=== PATIENT | male | born 1985 | race Caucasian/White ===

== ENCOUNTER 2018-05-24 01:26 | Emergency (ER) | payer OTHER ==
[2018-05-24] MEDS ORDERED: Acetylcysteine 20% 200 MG/ML 30 ML Nebulizer Soln SDV PO ONE (01:48)
[2018-05-24] MEDS ORDERED: ACETYLCYSTEINE ONE (02:00)
[2018-05-24 02:15] LABS: CHLORIDE,CL 96 mEq/L (98-106); SODIUM,NA 137 mEq/L (136-145)
[2018-05-24] MEDS ORDERED: Acetylcysteine 20% 200 MG/ML 30 ML SDV IV ONE (02:15)
[2018-05-24] MEDS ORDERED: Dextrose 5% in Water 100 ML ONE (02:15)
[2018-05-24] MEDS ORDERED: Dextrose 5% in Water 250 ML ONE (02:20)
--- NOTE | 2018-05-24 02:26 | EDM.PDOC ---
ED HPI GENERAL MEDICAL PROBLEM - General Chief Complaint: General Stated Complaint: suicide attept Time Seen by Provider: 05/24/18 01:45 Source of Information: Reports: Patient, EMS, RN History Limitations: Reports: Intoxication - History of Present Illness INITIAL COMMENTS - FREE TEXT/NARRATIVE: This patient is a 33 year old male that presents to the ER. Patient arrives via [facility]. The EMS reports the patient drank 2 cases of beer, took Tylenol, Advil, and Clonazepam. It is reported that the bottles were empty laying next to him on the floor. The patient reports he drank beer tonight, 2 cases. He reports taking 10mg of Clonazepam, unknown # of Advil or Tylenol. The patient arrives drowsy, but aroused. He is verbal. When I ask the patient why he took all those items, he reports "I was scared." I asked if he was trying to kill himself, he states "no." The RN reports the patient told her that he was trying to kill himself today. The patient is oriented to self and year, but not place. He does report in a hospital, but in [place]. The patient is cooperative, verbal slurred speech that is recognizable. The patient does follow commands. Shows no unilateral weaknesses. Patient denies small, dizziness, n, v, d, f, cough , congestion, cp, soa, abd pain, urinary/bowel changes. Patient denies any pain. Patient denies being homicidal. At this time, patient remains drowsy, sleeping, but aroused. Patient oxygen saturation is 91% RA, respirations are 18 , no respiratory distress, no accessory muscle use, no cyanosis. Ability to answer questions. Patient was placed on 2L NC, oxygen than increased to 96%. At this time, will leave on NC, no intubation s the airway is patent and no respiratory distress at this time. Onset: Today Onset Date: 05/24/18 Severity: Moderate Improves with: Denies: None Worsens with: Denies: None Associated Symptoms: Reports: Confusion. Denies: Chest Pain, Cough, cough w sputum, Diaphoresis, Fever/Chills, Headaches, Loss of Appetite, Malaise, Nausea/ Vomiting, Rash, Seizure, Shortness of Breath, Syncope, Weakness - Related Data Allergies Allergy/AdvReac Type Severity Reaction Status Date / Time cat dander Allergy Swelling Verified 04/20/18 19:05 Home Meds: Home Meds Venlafaxine [Effexor XR] 225 mg PO BEDTIME 04/20/18 [History] buPROPion [buPROPion XL] 150 mg PO BEDTIME 04/20/18 [History] clonazePAM [Klonopin] 2 mg PO DAILY 04/20/18 [History] Past Medical History Psychiatric History: Reports: Anxiety, Depression - Past Surgical History HEENT Surgical History: Reports: Other (See Below) Other HEENT Surgeries/Procedures: 15 ear surgeries ED ROS GENERAL - Review of Systems Review Of Systems: See Below Constitutional: Reports: No Symptoms HEENT: Reports: No Symptoms Respiratory: Reports: No Symptoms Cardiovascular: Reports: No Symptoms Endocrine: Reports: No Symptoms GI/Abdominal: Reports: No Symptoms : Reports: No Symptoms Musculoskeletal: Reports: No Symptoms Skin: Reports: No Symptoms Neurological: Reports: Confusion. Denies: Dizziness, Headache Psychiatric: Reports: Confusion, Depression, Suicidal Ideation, Other (Suicidal attempt) Hematologic/Lymphatic: Reports: No Symptoms Immunologic: Reports: No Symptoms ED EXAM, GENERAL - Physical Exam Exam: See Below Exam Limited By: No Limitations General Appearance: WD/WN, Obese, Other (Drowsy, but arrousable and verbal.) Eye Exam: Bilateral Eye: Normal Fundi, Normal Inspection, PERRL Ears: Normal External Exam, Normal Canal, Hearing Grossly Normal, Normal TMs Ear Exam: Left Ear: Auricle Normal (Right small superificial abrasion), Bilateral Ear: Canal Normal, TM normal Nose: Normal Inspection, Normal Mucosa, No Blood Throat/Mouth: Normal Inspection, Normal Lips, Normal Teeth, Normal Gums, Normal Oropharynx, No Airway Compromise Head: Atraumatic, Normocephalic Neck: Normal Inspection, Supple, Non-Tender, Full Range of Motion Respiratory/Chest: No Respiratory Distress, Lungs Clear, Normal Breath Sounds, No Accessory Muscle Use, Chest Non-Tender. No: Respiratory Distress, Decreased Breath Sounds, Crackles, Rales, Rhonchi, Wheezing, Stridor, Pleural Rub, Accessory Muscle Use, Retractions, Splinting, Prolonged Expiration Cardiovascular: Normal Peripheral Pulses, Regular Rate, Rhythm, No Edema, No Gallop, No JVD, No Murmur, No Rub Peripheral Pulses: 2+: Radial (L), Radial (R), Posterior Tibial (L), Posterior Tibial (R) GI/Abdominal: Normal Bowel Sounds, Soft, Non-Tender, No Organomegaly, No Distention, No Abnormal Bruit, No Mass, Pelvis Stable (Male) Exam: Deferred Rectal (Males) Exam: Deferred Back Exam: Normal Inspection, Full Range of Motion Extremities: Normal Inspection, Normal Range of Motion, Non-Tender, No Pedal Edema, Normal Capillary Refill Neurological: Confused (Oriented to self and year. He believes he is in [place]. ) , Other (Patientis drowsy, but arrousable. He is verbal with slurred speech, but is coherent speech. No unialteral weaknesses. ) Psychiatric: Flat Affect Skin Exam: Warm, Dry, Intact, Normal Color, No Rash Lymphatic: No Adenopathy Course - Orders/Labs/Meds Orders: Active Orders 24 hr Category Date Time Status EKG Documentation Completion [RC] STAT Care 05/24/18 01:47 Active Head wo Cont [CT] Stat Exams 05/24/18 02:35 Ordered DRUG SCREEN URINE BIORAD [URCHEM] Stat Lab 05/24/18 01:48 Ordered Labs: Laboratory Tests 05/24/18 05/24/18 05/24/18 Range/Units 01:55 01:55 01:55 WBC 10.8 H (5.0-10.0) 10^3/uL RBC 4.50 (4.50-6.00) 10^6/uL Hgb 13.9 L (14.0-18.0) g/dL Hct 38.7 L (40.0-54.0) % MCV 86.0 (82.0-94.0) fL MCH 30.9 (27.0-32.0) pg MCHC 35.9 (33.0-38.0) g/dL RDW Coeff of Miah 11.8 (11.0-15.0) % Plt Count 218 (150-400) 10^3/uL Neut % (Auto) 57.7 (35-85) % Lymph % (Auto) 35.8 (10-55) % Smith % (Auto) 5.0 (0-16) % Eos % (Auto) 1.2 (0-5) % Baso % (Auto) 0.3 (0-3) % Neut # (Auto) 6.23 (1.80-7.00) 10^3/uL Lymph # (Auto) 3.86 (1.00-4.80) 10^3/uL Smith # (Auto) 0.54 (0.00-0.80) 10^3/uL Eos # (Auto) 0.13 (0.00-0.45) 10^3/uL Baso # (Auto) 0.03 10^3/uL PT 9.8 (9.7-12.3) SEC INR 0.94 (0.92-1.18) Sodium 137 (136-145) mEq/L Potassium 3.0 L (3.5-5.0) mEq/L Chloride 96 L (98-106) mEq/L Carbon Dioxide 27 (21-32) mmol/L BUN 8 (7-18) mg/dL Creatinine 1.1 (0.7-1.3) mg/dL Est Cr Clr Drug Dosing TNP Estimated GFR (MDRD) > 60 (>=60) mL/min Glucose 92 (75-99) mg/dL Calcium 8.5 (8.4-10.1) mg/dL Total Bilirubin 0.3 (0.0-1.0) mg/dL AST 17 (15-37) U/L ALT 14 (12-78) U/L Alkaline Phosphatase 73 (46-116) U/L Total Protein 6.8 (6.4-8.2) g/dL Albumin 3.6 (3.4-5.0) g/dL Meds: Medications Discontinued Medications Generic Name Dose Route Start Last Admin Trade Name Aguilarq PRN Reason Stop Dose Admin Acetylcysteine 13,936 mg 05/24/18 01:48 05/24/18 02:49 Mucomyst 20% PO 05/24/18 01:49 Not Given ONETIME ONE Acetylcysteine Confirm 05/24/18 02:00 05/24/18 02:49 Mucomyst 10% Administered 05/24/18 02:01 Not Given Dose 1,600 mg .ROUTE .STK-MED ONE Acetylcysteine 15,000 mg 05/24/18 02:15 05/24/18 02:40 Acetadote 20% IV 05/24/18 02:16 15,000 mg ONETIME ONE Administration Dextrose/Water Confirm 05/24/18 02:15 05/24/18 02:40 Dextrose 5% In Water Administered 05/24/18 02:16 Not Given Dose 100 mls @ as directed .ROUTE .STK-MED ONE Dextrose/Water Confirm 05/24/18 02:20 05/24/18 02:40 Dextrose 5% In Water Administered 05/24/18 02:21 250 mls/hr Dose Administration 250 mls @ as directed .ROUTE .STK-MED ONE - Re-Assessments/Exams Free Text/Narrative Re-Assessment/Exam: 05/24/18 01:50 Poison control was contacted. Suggested PT/INR, Liver panel, tylenol level, etoh level, and to give Acetylcysteine. We do not have ability to draw a Tylenol level or ETOH and obtain values tonight. We also do not have mental health admission capabilities. Patient will be transferred to a higher level of care. 05/24/18 02:[address] Reese at [facility]. He has accepted the patient, no further orders at this time. 05/24/18 02:49 At this time, patient remains drowsy, sleeping, but aroused. Patient oxygen saturation is 96% 2 L NC, respirations are 18, no respiratory distress, no accessory muscle use, no cyanosis. Ability to answer questions. I ordered a head ct due to patient altered level of conscience and unkown patient history. Departure - Departure Time of Disposition: 03:01 Disposition: DC/Tfer to Acute Hospital 02 Condition: Fair Clinical Impression: ETOH abuse Overdose by acetaminophen Qualifiers: Encounter type: initial encounter Injury intent: intentional self-harm Qualified Code(s): T39.1X2A - Poisoning by 4-Aminophenol derivatives, intentional self-harm, initial encounter Intentional clonazepam overdose Qualifiers: Encounter type: initial encounter Qualified Code(s): T42.4X2A - Poisoning by benzodiazepines, intentional self-harm, initial encounter Advil overdose Qualifiers: Encounter type: initial encounter Injury intent: intentional self-harm Qualified Code(s): T39.312A - Poisoning by propionic acid derivatives, intentional self-harm, initial encounter Suicide attempt by drug ingestion Qualifiers: Encounter type: initial encounter Qualified Code(s): T50.902A - Poisoning by unspecified drugs, medicaments and biological substances, intentional self-harm , initial encounter - Discharge Information *PRESCRIPTION DRUG MONITORING PROGRAM REVIEWED*: No *COPY OF PRESCRIPTION DRUG MONITORING REPORT IN PATIENT FINA: No Forms: ED Department Discharge - My Orders Last 24 Hours: My Active Orders 05/24/18 01:47 EKG Documentation Completion [RC] STAT 05/24/18 01:48 DRUG SCREEN URINE BIORAD [URCHEM] Stat 05/24/18 02:35 Head wo Cont [CT] Stat - Assessment/Plan Last 24 Hours: My Active Orders 05/24/18 01:47 EKG Documentation Completion [RC] STAT 05/24/18 01:48 DRUG SCREEN URINE BIORAD [URCHEM] Stat 05/24/18 02:35 Head wo Cont [CT] Stat Plan: PLEASE SEE RN NOTE FOR PFSH. Patient is being transferred to [facility]. The risks/benefits have been explained to the patient. The risks of transfer are mvc, respiratory distress, intubation, cardiac arrest, , suicide. The benefits of transfer are seeking higher level of care, tylenol lab, etoh lab, psych consultation. The risk of staying in [place] is , intubation, inability to obtain vital labs, cardiac arrest, respiratory distress. The benefits of staying in [place] are none.
== END 2018-05-24 04:30 ==
LOC: CC.ED 01:26
DX: T39.312A Poisoning by propionic acid derivatives, intentional self-harm, initial encounter (principal); T42.4X2A Poisoning by benzodiazepines, intentional self-harm, initial encounter; T39.1X2A Poisoning by 4-Aminophenol derivatives, intentional self-harm, initial encounter; S00.411A Abrasion of right ear, initial encounter; F10.10 Alcohol abuse, uncomplicated; F41.9 Anxiety disorder, unspecified; F32.9 Major depressive disorder, single episode, unspecified; Z91.09 Other allergy status, other than to drugs and biological substances
CPT/HCPCS: 36415; 70450; 80053; 85025; 85610; 93005; 96365; 99285; A9270-GY; J0132; J7060